=== PATIENT | female | born 1940 | race African-American/Black ===

== ENCOUNTER 2022-04-12 08:33 | Emergency (ER) | payer MEDICARE, BC ==
[~2022-04-12] VITALS: Ht 165.1 cm; Wt 87.0 kg
[~2022-04-12 08:33] MED LIST: ATOR20TA65 PO; BUDE6HFA IH; CALC1TAB PO; CHOL500051 PO; CLON0.2T PO; METF-416 PO; OLME1TAB28 PO; POTA8TAB70 PO; TOPUD PO
[2022-04-12 08:36] VITALS: BP 181/64
== END 2022-04-12 11:10 | disposition home or self-care (01) ==
LOC: ER 08:33
DX: S09.8XXA Other specified injuries of head, initial encounter (principal); J45.909 Unspecified asthma, uncomplicated; E11.9 Type 2 diabetes mellitus without complications; I10 Essential (primary) hypertension; W01.198A Fall on same level from slipping, tripping and stumbling with subsequent striking against other object, initial encounter; Y93.9 Activity, unspecified; Y92.9 Unspecified place or not applicable; Z88.0 Allergy status to penicillin
CPT/HCPCS: 99284

== ENCOUNTER 2022-11-25 14:46 | Emergency (ER) | payer BC ==
[~2022-11-25] VITALS: Ht 167.6 cm; Wt 66.0 kg
[~2022-11-25 14:46] MED LIST changes: -ATOR20TA65 PO; +PRAV80TA19 PO; -TOPUD PO
[2022-11-25 14:54] VITALS: RESP 18; TEMP 98.3; O2SAT 100
[2022-11-25 17:26] LABS: CHLORIDE 107 mEq/L (98-107); INDEX HEMOLYSI 1 (1-3); INDEX ICTERIC 1 (1-4); INDEX LIPEMIC 1 (1-3); POTASSIUM 4.1 mEq/L (3.5-5.1); SODIUM 136 mEq/L (136-145)
[2022-11-25 17:29] LABS: ALBUMIN 3.7 g/dL (3.4-5.0); CALCIUM 8.7 mg/dL (8.5-10.1); CARBON DIOXIDE 26 mEq/L (21-32); GLUCOSE 98 mg/dL (70-105); UREA NITROGEN BLOOD 12 mg/dL (7-21)
[2022-11-25 17:31] LABS: PROTHROMBIN TIME 10.6 sec (9.6-11.0)
[2022-11-25 17:35] LABS: ALANINE AMINOTRANSFERASE 18 IU/L (13-61); ASPARTATE AMINOTRANSFERASE 20 IU/L (15-37); BASOPHILS % 0.8 % (0.0-2.0); BILIRUBIN TOTAL 0.5 mg/dL (0.1-1.0); CREATININE 0.9 mg/dL (0.6-1.3); EOSINOPHILS % 3.9 % (0.0-5.0); HEMATOCRIT. 37.3 % (36.0-48.0); HEMOGLOBIN. 11.9 g/dL (12.0-16.0); LYMPHOCYTES % 39.6 % (20.0-50.0); MEAN CORPUSCULAR HEMOGLOBIN 26.2 pg (28.0-32.0); MEAN CORPUSCULAR HGB CONC 31.9 g/dL (31.0-37.0); MEAN PLATELET VOLUME 8.7 fl (7.4-10.4); MONOCYTES % 9.7 % (2.0-8.0); NT PRO B-TYPE NATRIURETIC PEP 435 pg/mL (5-125); PLATELET 235 x1000/uL (130-400); PROTEIN TOTAL 7.6 g/dL (6.0-8.3); RED BLOOD CELL COUNT 4.55 mill/uL (4.2-5.4); RED CELL DISTRIBUTION WIDTH 16.1 % (11.6-14.6); TROPONIN I HIGH SENSITIVITY 10 ng/L (<54); WHITE BLOOD COUNT 4.4 x1000/uL (4.5-11.0)
[2022-11-25 17:42] LABS: CLARITY URINE CLEAR (CLEAR); COLOR URINE YELLOW (YELLOW); GLUCOSE URINE NEGATIVE (NEGATIVE); KETONES URINE NEGATIVE (NEGATIVE); LEUKOCYTE ESTERASE URINE TRACE (NEGATIVE); NITRITE URINE NEGATIVE (NEGATIVE); OCCULT BLOOD URINE NEGATIVE (NEGATIVE); PH URINE 6.5 (4.5-8.0); PROTEIN URINE NEGATIVE (NEGATIVE); SPECIFIC GRAVITY URINE 1.004 (1.005-1.030); UROBILINOGEN URINE 0.2 E.U./dL (0.2-1.0)
[2022-11-25 18:03] LABS: BACTERIA URINE TRACE; RBC URINE NONE SEEN /hpf (0-2); SQUAMOUS EPITHELIAL CELL URINE FEW /lpf (RARE/1+); WBC URINE 0-2 /hpf (0-2)
[2022-11-25] MEDS ORDERED: HYDRALAZINE HCL 10MG TABLET PO ONE (18:15)
[2022-11-25 18:30] VITALS: BP 182/69; PULSE 68
== END 2022-11-25 18:30 | disposition home or self-care (01) ==
LOC: ER 15:04
DX: R53.1 Weakness (principal); I10 Essential (primary) hypertension; J45.909 Unspecified asthma, uncomplicated; E11.9 Type 2 diabetes mellitus without complications; Z98.890 Other specified postprocedural states; Z88.0 Allergy status to penicillin; Z88.8 Allergy status to other drugs, medicaments and biological substances; Z88.1 Allergy status to other antibiotic agents
CPT/HCPCS: 36415; 71045; 80053; 81003; 83880; 84484; 85025; 93005; 99285

== ENCOUNTER 2022-11-29 20:21 | Emergency (ER) | payer BC ==
[~2022-11-29] VITALS: Ht 165.1 cm; Wt 73.0 kg
[2022-11-29 20:29] VITALS: O2SAT 99
[2022-11-30 00:17] LABS: BASOPHILS % 0.7 % (0.0-2.0); EOSINOPHILS % 3.2 % (0.0-5.0); HEMATOCRIT. 32.2 % (36.0-48.0); HEMOGLOBIN. 10.7 g/dL (12.0-16.0); LYMPHOCYTES % 33.8 % (20.0-50.0); MEAN CORPUSCULAR HEMOGLOBIN 26.7 pg (28.0-32.0); MEAN CORPUSCULAR HGB CONC 33.2 g/dL (31.0-37.0); MEAN CORPUSCULAR VOLUME 80.4 fL (81.0-99.0); MEAN PLATELET VOLUME 8.3 fl (7.4-10.4); MONOCYTES % 11.9 % (2.0-8.0); NEUTROPHILS % 50.4 % (40.0-76.0); PLATELET 221 x1000/uL (130-400); RED CELL DISTRIBUTION WIDTH 15.5 % (11.6-14.6); WHITE BLOOD COUNT 4.5 x1000/uL (4.5-11.0)
[2022-11-30 00:25] LABS: CHLORIDE 105 mEq/L (98-107); INDEX HEMOLYSI 1 (1-3); INDEX ICTERIC 1 (1-4); INDEX LIPEMIC 1 (1-3); POTASSIUM 3.5 mEq/L (3.5-5.1); SODIUM 136 mEq/L (136-145)
[2022-11-30 00:27] LABS: CALCIUM 8.9 mg/dL (8.5-10.1)
[2022-11-30 00:35] LABS: ALANINE AMINOTRANSFERASE 20 IU/L (13-61); ALBUMIN 3.6 g/dL (3.4-5.0); ASPARTATE AMINOTRANSFERASE 21 IU/L (15-37); BILIRUBIN TOTAL 0.5 mg/dL (0.1-1.0); CARBON DIOXIDE 26 mEq/L (21-32); CREATININE 0.9 mg/dL (0.6-1.3); GLUCOSE 117 mg/dL (70-105); PROTEIN TOTAL 7.2 g/dL (6.0-8.3); TROPONIN I HIGH SENSITIVITY 45 ng/L (<54); UREA NITROGEN BLOOD 10 mg/dL (7-21)
[2022-11-30 00:50] VITALS: TEMP 97.7
[2022-11-30 03:00] VITALS: BP 164/61; PULSE 75; RESP 20
== END 2022-11-30 03:02 | disposition home or self-care (01) ==
LOC: ER 22:27
DX: I10 Essential (primary) hypertension (principal); J45.909 Unspecified asthma, uncomplicated; E11.9 Type 2 diabetes mellitus without complications; E78.00 Pure hypercholesterolemia, unspecified; Z79.899 Other long term (current) drug therapy
CPT/HCPCS: 36415; 71045; 80053; 84484; 85025; 93005; 99285

== ENCOUNTER 2023-02-01 18:31 | Emergency (ER) | payer BC ==
[~2023-02-01] VITALS: Ht 165.1 cm; Wt 77.0 kg
[2023-02-01 18:37] VITALS: BP 170/64; PULSE 70; RESP 16; TEMP 98.7; O2SAT 100
[2023-02-01 19:40] LABS: BASOPHILS % 1.1 % (0.0-2.0); EOSINOPHILS % 4.7 % (0.0-5.0); HEMATOCRIT. 32.8 % (36.0-48.0); HEMOGLOBIN. 10.6 g/dL (12.0-16.0); LYMPHOCYTES % 32.4 % (20.0-50.0); MEAN CORPUSCULAR HEMOGLOBIN 26.3 pg (28.0-32.0); MEAN CORPUSCULAR HGB CONC 32.3 g/dL (31.0-37.0); MEAN CORPUSCULAR VOLUME 81.4 fL (81.0-99.0); MEAN PLATELET VOLUME 8.6 fl (7.4-10.4); MONOCYTES % 12.5 % (2.0-8.0); NEUTROPHILS % 49.3 % (40.0-76.0); PLATELET 242 x1000/uL (130-400); RED BLOOD CELL COUNT 4.03 mill/uL (4.2-5.4); RED CELL DISTRIBUTION WIDTH 15.8 % (11.6-14.6)
[2023-02-01 19:50] LABS: CHLORIDE 102 mEq/L (98-107); INDEX HEMOLYSI 1 (1-3); INDEX ICTERIC 1 (1-4); INDEX LIPEMIC 1 (1-3); POTASSIUM 3.7 mEq/L (3.5-5.1); SODIUM 134 mEq/L (136-145)
[2023-02-01 20:00] LABS: ALANINE AMINOTRANSFERASE 24 IU/L (13-61); ALBUMIN 3.3 g/dL (3.4-5.0); ASPARTATE AMINOTRANSFERASE 23 IU/L (15-37); BILIRUBIN TOTAL 0.4 mg/dL (0.1-1.0); CALCIUM 8.5 mg/dL (8.5-10.1); CARBON DIOXIDE 25 mEq/L (21-32); GLUCOSE 110 mg/dL (70-105); NT PRO B-TYPE NATRIURETIC PEP 327 pg/mL (5-125); PROTEIN TOTAL 6.9 g/dL (6.0-8.3); TROPONIN I HIGH SENSITIVITY 13 ng/L (<54); UREA NITROGEN BLOOD 26 mg/dL (7-21)
== END 2023-02-01 20:20 | disposition left against medical advice (07) ==
LOC: ER 18:31
DX: I10 Essential (primary) hypertension (principal); J45.909 Unspecified asthma, uncomplicated; E11.9 Type 2 diabetes mellitus without complications; E78.00 Pure hypercholesterolemia, unspecified; Z79.899 Other long term (current) drug therapy; Z88.0 Allergy status to penicillin
CPT/HCPCS: 36415; 71045; 80053; 83880; 84484; 85025; 93005; 99285

== ENCOUNTER 2023-03-23 18:30 | Emergency (ER) | payer BC ==
[~2023-03-23] VITALS: Ht 172.7 cm; Wt 75.0 kg
[2023-03-23 18:34] VITALS: BP 202/76; PULSE 92; RESP 14; O2SAT 99
[2023-03-23 19:47] LABS: BASOPHILS % 0.4 % (0.0-2.0); EOSINOPHILS % 0.9 % (0.0-5.0); HEMATOCRIT. 38.5 % (36.0-48.0); LYMPHOCYTES % 8.5 % (20.0-50.0); MEAN CORPUSCULAR HEMOGLOBIN 26.2 pg (28.0-32.0); MEAN CORPUSCULAR HGB CONC 31.1 g/dL (31.0-37.0); MEAN CORPUSCULAR VOLUME 84.2 fL (81.0-99.0); MEAN PLATELET VOLUME 8.8 fl (7.4-10.4); MONOCYTES % 7.6 % (2.0-8.0); NEUTROPHILS % 82.6 % (40.0-76.0); PLATELET 284 x1000/uL (130-400); RED BLOOD CELL COUNT 4.57 mill/uL (4.2-5.4); RED CELL DISTRIBUTION WIDTH 15.2 % (11.6-14.6); WHITE BLOOD COUNT 8.8 x1000/uL (4.5-11.0)
[2023-03-23 19:57] LABS: ALANINE AMINOTRANSFERASE 72 IU/L (10-49); ALBUMIN 4.4 g/dL (3.2-4.8); ASPARTATE AMINOTRANSFERASE 31 IU/L (<34); BILIRUBIN TOTAL 0.7 mg/dL (0.1-1.0); CALCIUM 9.8 mg/dL (8.7-10.4); CARBON DIOXIDE 28 mEq/L (21-32); CHLORIDE 103 mEq/L (98-107); CREATININE 1.2 mg/dL (0.6-1.0); GLUCOSE 135 mg/dL (70-105); POTASSIUM 3.4 mEq/L (3.5-5.1); PROTEIN TOTAL 7.9 g/dL (6.0-8.3); SODIUM 138 mEq/L (136-145); TROPONIN I HIGH SENSITIVITY 10 ng/L (3.0-34); UREA NITROGEN BLOOD 29 mg/dL (9-23)
== END 2023-03-23 22:35 | disposition left against medical advice (07) ==
LOC: ER 18:30
DX: R10.30 Lower abdominal pain, unspecified (principal); R05.9 Cough, unspecified; R09.81 Nasal congestion; J45.909 Unspecified asthma, uncomplicated; E11.9 Type 2 diabetes mellitus without complications; E78.00 Pure hypercholesterolemia, unspecified; I10 Essential (primary) hypertension; Z79.899 Other long term (current) drug therapy
CPT/HCPCS: 36415; 80053; 84484; 85025; 93005; 99284

== ENCOUNTER 2024-04-24 13:49 | Inpatient (IN) | payer BC, MEDICARE ==
[~2024-04-24] VITALS: Ht 152.4 cm; Wt 72.6 kg
[~2024-04-24 13:49] MED LIST changes: +ALBU18HF2 IH; +ASPI-1160 PO; +ATEN-42 PO; +LIP40 PO; +LOSA25TA26 PO; +METH4TAB95 MT; -OLME1TAB28 PO; -PRAV80TA19 PO
[2024-04-24 14:00] VITALS: RESP 25
[2024-04-24] MEDS: IPRATROPIUM BROMIDE (0.02%) 0.5MG/2.5ML NEB HHN STA (14:00)
[2024-04-24] MEDS: ALBUTEROL (0.083%) 2.5MG/3ML NEB HHN STA (14:00)
[2024-04-24] MEDS: METHYLPREDNISOLONE SOD SUCC 125MG/2ML (ACT-O-VIAL) IV STA (14:29)
[2024-04-24] MEDS: MAGNESIUM 2 G PREMIX 50 ML IV STA (14:30)
[2024-04-24] MEDS: SODIUM CHLORIDE 0.9% (SEPSIS BOLUS) IV ONE (14:30)
[2024-04-24 14:57] LABS: BASOPHILS % 0.8 % (0.0-2.0); EOSINOPHILS % 6.5 % (0.0-5.0); HEMATOCRIT. 36.7 % (36.0-48.0); HEMOGLOBIN. 11.4 g/dL (12.0-16.0); LYMPHOCYTES % 10.8 % (20.0-50.0); MEAN CORPUSCULAR HEMOGLOBIN 26.1 pg (28.0-32.0); MEAN CORPUSCULAR HGB CONC 31.1 g/dL (31.0-37.0); MEAN CORPUSCULAR VOLUME 83.7 fL (81.0-99.0); MONOCYTES % 2.3 % (2.0-8.0); NEUTROPHILS % 79.6 % (40.0-76.0); PLATELET 242 x1000/uL (130-400); RED BLOOD CELL COUNT 4.38 mill/uL (4.2-5.4); RED CELL DISTRIBUTION WIDTH 16.5 % (11.6-14.6); WHITE BLOOD COUNT 7.9 x1000/uL (4.5-11.0)
[2024-04-24 15:09] LABS: PROTHROMBIN TIME 10.7 sec (9.6-11.0)
[2024-04-24 15:13] LABS: CHLORIDE 108 mEq/L (98-107); POTASSIUM 4.9 mEq/L (3.5-5.1); SODIUM 138 mEq/L (136-145)
[2024-04-24 15:14] LABS: CALCIUM 9.4 mg/dL (8.7-10.4); CARBON DIOXIDE 23 mEq/L (21-32)
[2024-04-24 15:19] LABS: CREATININE 1.2 mg/dL (0.6-1.0); GLUCOSE 212 mg/dL (70-105); UREA NITROGEN BLOOD 20 mg/dL (9-23)
[2024-04-24] MEDS: DOXYCYCLINE 100MG/100ML 100 ML IV ONE (15:19)
[2024-04-24 15:21] LABS: ALANINE AMINOTRANSFERASE 72 IU/L (10-49); ALBUMIN 4.4 g/dL (3.2-4.8); ASPARTATE AMINOTRANSFERASE 103 IU/L (<34); BILIRUBIN DIRECT 0.2 mg/dL (<=3.0); BILIRUBIN TOTAL 0.7 mg/dL (0.1-1.0); PROTEIN TOTAL 7.4 g/dL (6.0-8.3); TROPONIN I HIGH SENSITIVITY 9 ng/L (3.0-34)
[2024-04-24 19:39] LABS: CLARITY URINE CLEAR (CLEAR); COLOR URINE YELLOW (YELLOW); GLUCOSE URINE NEGATIVE (NEGATIVE); KETONES URINE NEGATIVE (NEGATIVE); LEUKOCYTE ESTERASE URINE NEGATIVE (NEGATIVE); NITRITE URINE NEGATIVE (NEGATIVE); OCCULT BLOOD URINE NEGATIVE (NEGATIVE); PROTEIN URINE 1+ (NEGATIVE); SPECIFIC GRAVITY URINE 1.014 (1.005-1.030); UROBILINOGEN URINE 0.2 E.U./dL (0.2-1.0)
[2024-04-24 20:43] LABS: BACTERIA URINE NONE SEEN; RBC URINE NONE SEEN /hpf (0-2); SQUAMOUS EPITHELIAL CELL URINE NONE SEEN /lpf (RARE/1+); WBC URINE NONE SEEN /hpf (0-2); YEAST URINE NONE SEEN
[2024-04-24 21:07] VITALS: RESP 23
[2024-04-25 04:37] VITALS: RESP 24
[2024-04-25 13:35] VITALS: BP 180/68; PULSE 95; RESP 20; TEMP 36.114; O2SAT 94
[2024-04-25] MEDS ORDERED: PRED10TA PO (14:39)
[2024-04-25] MEDS ORDERED: D-ME473S50 PO (14:42)
[2024-04-25] MEDS ORDERED: MONT-39 PO (14:42)
[2024-04-25] MEDS ORDERED: TRIAMTERENE-HCTZ (14:42)
[2024-04-25] MEDS ORDERED: OLME20TA68 PO ×2 (14:42→14:57)
[2024-04-25] MEDS ORDERED: DEXTROSE 50% WATER 50ML SYRINGE IV PRN (14:45)
[2024-04-25] MEDS ORDERED: AMLODIPINE 10MG TABLET PO PRN (14:45)
[2024-04-25] MEDS ORDERED: ACETAMINOPHEN 325MG TABLET PO PRN (14:45)
[2024-04-25] MEDS ORDERED: ONDANSETRON HCL 4MG/2ML INJ IV PRN (14:45)
[2024-04-25] MEDS ORDERED: HYDR50TA40 MT (14:55)
[2024-04-25] MEDS: LORATADINE 10MG TABLET PO SCH (15:11)
[2024-04-25] MEDS: CLONIDINE 0.1MG TABLET PO PRN (15:12)
[2024-04-25] MEDS: METHYLPREDNISOLONE SOD SUCC 40MG/ML (ACT-O-VIAL) IV SCH (15:13)
[2024-04-25] MEDS: HYDRALAZINE HCL 50MG TABLET PO SCH (15:58)
[2024-04-25 16:00] VITALS: BP 165/65; PULSE 89; RESP 20; TEMP 36.50292; O2SAT 96
[2024-04-25 16:46] VITALS: BP 165/65; PULSE 89; RESP 20; TEMP 36.5292
[2024-04-25] MEDS: BLOOD SUGAR DIAGNOSTIC STRIP TEST SCH (17:10)
[2024-04-25] MEDS: INSULIN LISPRO 100 UNITS/ML SUBCUT SCH (17:40)
[2024-04-25] MEDS ORDERED: IPRATROPIUM/ALBUTEROL 0.5-3(2.5)MG/3ML NEB HHN SCH (18:00)
[2024-04-25] MEDS: MONTELUKAST SODIUM 10MG TABLET PO SCH (18:03)
[2024-04-25 20:00] VITALS: BP 163/68; PULSE 95; RESP 18; TEMP 37.00296; O2SAT 100
[2024-04-26] VITALS (7 sets, daily range): BP systolic 152–171; BP diastolic 59–81; PULSE 88–94; RESP 18–19; TEMP 36.61404–37.05852; O2SAT 94–98
[2024-04-26] MEDS: IPRATROPIUM/ALBUTEROL 0.5-3(2.5)MG/3ML NEB HHN SCH (03:20)
[2024-04-27] VITALS: BP 165/77; PULSE 80; RESP 20; TEMP 36.89184; O2SAT 97
[2024-04-27 04:00] VITALS: BP 151/70; PULSE 82; RESP 18; TEMP 36.55848; O2SAT 99
[2024-04-27 08:00] VITALS: BP_SYST 166; BP_SYST 194; BP_DIAS 67; BP_DIAS 79; PULSE 74; PULSE 81; TEMP 36.78072
[2024-04-27] MEDS: METHYLPREDNISOLONE SOD SUCC 40MG/ML (ACT-O-VIAL) IV SCH (08:30)
[2024-04-27 12:00] VITALS: BP 202/88; PULSE 90; RESP 18; TEMP 36.83628; O2SAT 95
[2024-04-27] MEDS: HYDRALAZINE 20MG/ML VIAL IV NR (12:23)
[2024-04-27 14:49] VITALS: BP 149/67; PULSE 90; TEMP 98.1; O2SAT 96
[2024-04-27 14:50] VITALS: BP 149/67; PULSE 90; RESP 18; TEMP 36.72516; O2SAT 96
[2024-04-27] MEDS ORDERED: P20 MT (17:12)
== END 2024-04-27 16:10 | disposition home or self-care (01) | DRG 189 ==
LOC: ER 13:49 → 8WST 15:48 → EDBEDREQ 15:51 → EDBEDREQTM 15:51 → EDBEDREQSVC 04-25 11:51 → 8WST 04-25 14:31
PROVIDERS: ADMIT Internal Medicine; ATTEND Internal Medicine
PROC: 5A09357 Assistance with Respiratory Ventilation, Less than 24 Consecutive Hours, Continuous Positive Airway Pressure (ICD-10-PCS; principal; 2024-04-24)
PROC: 5A09357 Assistance with Respiratory Ventilation, Less than 24 Consecutive Hours, Continuous Positive Airway Pressure (ICD-10-PCS; 2024-04-25)
DX: J96.01 Acute respiratory failure with hypoxia (principal); J44.1 Chronic obstructive pulmonary disease with (acute) exacerbation; I10 Essential (primary) hypertension; D72.10 Eosinophilia, unspecified; R80.9 Proteinuria, unspecified; E11.65 Type 2 diabetes mellitus with hyperglycemia; I27.20 Pulmonary hypertension, unspecified; Z88.0 Allergy status to penicillin; Z99.81 Dependence on supplemental oxygen; Z88.1 Allergy status to other antibiotic agents; Z88.8 Allergy status to other drugs, medicaments and biological substances
CPT/HCPCS: 36415; 71045; 80048; 80076; 81003; 82962; 83036; 83605; 83880; 84145; 84484; 85025; 93005; 94640; 94660; 99291; J0360; J1815; J2919; J2920; J3475; J3490; J7030

== ENCOUNTER 2024-08-18 19:58 | Inpatient (IN) | payer BC, MEDICARE ==
[~2024-08-18] VITALS: Ht 165.1 cm; Wt 74.4 kg
[~2024-08-18 19:58] MED LIST changes: +D-ME473S50 PO; +HYDR50TA40 MT; +MONT-39 PO; +OLME20TA68 PO; +P20 MT; +PRED10TA PO; +TRIAMTERENE-HCTZ
[2024-08-18 20:05] VITALS: RESP 32
[2024-08-18] MEDS: FUROSEMIDE 40MG/4ML VIAL IVP ONE (20:37)
[2024-08-18] MEDS: NITROGLYCERIN 0.1MG/HR PATCH TOP ONE (20:38)
[2024-08-18] MEDS: NITROGLYCERIN 50MG PREMIX 250 ML IV ONE (20:39)
[2024-08-18 20:49] LABS: CHLORIDE 105 mEq/L (98-107); POTASSIUM 4.2 mEq/L (3.5-5.1); SODIUM 142 mEq/L (136-145)
[2024-08-18 20:50] LABS: CALCIUM 9.4 mg/dL (8.7-10.4); CARBON DIOXIDE 25 mEq/L (21-32)
[2024-08-18 20:55] LABS: CREATININE 1.4 mg/dL (0.6-1.0); GLUCOSE 223 mg/dL (70-105); UREA NITROGEN BLOOD 25 mg/dL (9-23)
[2024-08-18 20:56] LABS: TROPONIN I HIGH SENSITIVITY 13 ng/L (3.0-34)
[2024-08-18 20:57] LABS: ALANINE AMINOTRANSFERASE 39 IU/L (10-49); ALBUMIN 4.3 g/dL (3.2-4.8); ASPARTATE AMINOTRANSFERASE 45 IU/L (<34); BASOPHILS % 1.4 % (0.0-2.0); BILIRUBIN DIRECT 0.1 mg/dL (<=3.0); BILIRUBIN TOTAL 0.5 mg/dL (0.1-1.0); HEMATOCRIT. 36.2 % (36.0-48.0); HEMOGLOBIN. 11.4 g/dL (12.0-16.0); LYMPHOCYTES % 42.5 % (20.0-50.0); MEAN CORPUSCULAR HEMOGLOBIN 27.2 pg (28.0-32.0); MEAN CORPUSCULAR HGB CONC 31.6 g/dL (31.0-37.0); MEAN CORPUSCULAR VOLUME 86.1 fL (81.0-99.0); MEAN PLATELET VOLUME 8.8 fl (7.4-10.4); NEUTROPHILS % 34.1 % (40.0-76.0); PLATELET 246 x1000/uL (130-400); RED CELL DISTRIBUTION WIDTH 19.7 % (11.6-14.6); WHITE BLOOD COUNT 6.8 x1000/uL (4.5-11.0)
[2024-08-19] VITALS (15 sets, daily range): BP systolic 102–172; BP diastolic 28–105; PULSE 81–101; RESP 14–30; TEMP 35.8–36.7; O2SAT 93–100
[2024-08-19 01:00] LABS: BG BASE EXCESS -1.7 mmol/L (-2.0-3.0); BG CARBOXYHEMOGLOBIN 0.8 % (0.5-1.5); BG DEOXYHEMOGLOBIN 0.1 % (0.0-5.0); BG FRACTION INSPIRED OXYGEN 100; BG HCO3 ACT 25.4 mmol/L (21.0-28.0); BG METHEMOGLOBIN 0.1 % (0.5-1.5); BG OXYGEN SATURATION 99.9 % (94.0-98.0); BG PCO2 52.5 mmHg (32.0-45.0); BG PH 7.302 (7.350-7.450); BG PO2 344.1 mmHg (83.0-108.0); BG SAMPLE SITE LEFT FEMORAL; BG TOTAL HEMOGLOBIN 13.5 g/dL (12.0-16.0); BG VENT MODE MASK - BIPAP
[2024-08-19] MEDS ORDERED: GUAIFENESIN 200MG/10ML SUGAR FREE UDC PO PRN (01:00)
[2024-08-19] MEDS ORDERED: MAGNESIUM/ALUMINUM HYDROXIDE/SIMETHICONE 30ML UDC PO PRN (01:00)
[2024-08-19] MEDS ORDERED: DOCUSATE SODIUM 100MG CAPSULE PO PRN (01:00)
[2024-08-19] MEDS ORDERED: IPRATROPIUM/ALBUTEROL 0.5-3(2.5)MG/3ML NEB HHN PRN (01:00)
[2024-08-19] MEDS ORDERED: ONDANSETRON HCL 4MG/2ML INJ IV PRN (01:00)
[2024-08-19] MEDS ORDERED: DEXTROSE 50% WATER 50ML SYRINGE IV PRN (01:00)
[2024-08-19] MEDS: METHYLPREDNISOLONE SOD SUCC 125MG/2ML (ACT-O-VIAL) IV NR (01:31)
[2024-08-19] MEDS: MAGNESIUM 1 G PREMIX 100 ML IV NR (01:33)
[2024-08-19] MEDS: CLONIDINE 0.1MG TABLET PO PRN (03:21)
[2024-08-19] MEDS: ACETAMINOPHEN 325MG TABLET PO PRN (03:30)
[2024-08-19] MEDS: HYDRALAZINE 20MG/ML VIAL IV NR (04:30)
[2024-08-19] MEDS ORDERED: HYDRALAZINE 20MG/ML VIAL IV ONE (04:30)
[2024-08-19] MEDS: HYDRALAZINE HCL 50MG TABLET PO SCH (05:21)
[2024-08-19 06:03] LABS: HEMATOCRIT 33.3 % (36.0-48.0); HEMOGLOBIN 10.8 g/dL (12.0-16.0); MEAN CORPUSCULAR HGB CONC 32.5 g/dL (31.0-37.0); MEAN CORPUSCULAR VOLUME 86.1 fL (81.0-99.0); PLATELET 230 x1000/uL (130-400); RED BLOOD CELL COUNT 3.86 mill/uL (4.2-5.4); RED CELL DISTRIBUTION WIDTH 19.3 % (11.6-14.6); WHITE BLOOD COUNT 4.9 x1000/uL (4.5-11.0)
[2024-08-19 06:42] LABS: CALCIUM 9.5 mg/dL (8.7-10.4); CARBON DIOXIDE 28 mEq/L (21-32); CHLORIDE 105 mEq/L (98-107); POTASSIUM 4.5 mEq/L (3.5-5.1); SODIUM 143 mEq/L (136-145)
[2024-08-19 06:47] LABS: CREATININE 1.3 mg/dL (0.6-1.0)
[2024-08-19 06:48] LABS: GLUCOSE 147 mg/dL (70-105); UREA NITROGEN BLOOD 27 mg/dL (9-23)
[2024-08-19 06:50] LABS: PHOSPHORUS 5.4 mg/dL (2.5-4.9)
[2024-08-19] MEDS: BLOOD SUGAR DIAGNOSTIC STRIP TEST SCH (07:30)
[2024-08-19] MEDS: INSULIN LISPRO 100 UNITS/ML SUBCUT SCH (08:00)
[2024-08-19] MEDS ORDERED: CLONIDINE 0.1MG TABLET PO SCH (09:00)
[2024-08-19] MEDS: IPRATROPIUM/ALBUTEROL 0.5-3(2.5)MG/3ML NEB HHN SCH (09:13)
[2024-08-19] MEDS: ENOXAPARIN 30MG/0.3ML SYR SUBCUT SCH (10:03)
[2024-08-19] MEDS: FAMOTIDINE 20MG/2ML VIAL IV SCH (10:04)
[2024-08-19] MEDS: ASPIRIN 81MG EC TABLET PO SCH (10:04)
[2024-08-19] MEDS: METHYLPREDNISOLONE SOD SUCC 40MG/ML (ACT-O-VIAL) IV SCH (10:04)
[2024-08-19] MEDS: CLONIDINE 0.2MG TABLET PO SCH (10:08)
[2024-08-19] MEDS: FUROSEMIDE 20MG/2ML VIAL IVP SCH (13:27)
[2024-08-19 18:01] LABS: *AMPHETAMINES SCREEN URINE NEGATIVE (NEGATIVE); *BARBITURATES SCREEN URINE NEGATIVE (NEGATIVE); *BENZODIAZEPINES SCREEN URINE NEGATIVE (NEGATIVE); *COCAINE SCREEN URINE NEGATIVE (NEGATIVE); CANNABINOID URINE SCREEN NEGATIVE (NEGATIVE); ECSTASY MDMA SCREEN URINE NEGATIVE (NEGATIVE); METHADONE URINE SCREEN NEGATIVE (NEGATIVE); OPIATES URINE SCREEN NEGATIVE (NEGATIVE); PHENCYCLIDINE URINE SCREEN NEGATIVE (NEGATIVE)
[2024-08-19] MEDS: MONTELUKAST SODIUM 10MG TABLET PO SCH (18:09)
[2024-08-20] VITALS (13 sets, daily range): BP systolic 105–141; BP diastolic 48–95; PULSE 78–93; RESP 13–21; TEMP 36.4–37; O2SAT 88–100
[2024-08-20 06:09] LABS: BASOPHILS % 0.1 % (0.0-2.0); HEMATOCRIT. 29.4 % (36.0-48.0); HEMOGLOBIN. 9.5 g/dL (12.0-16.0); LYMPHOCYTES % 10.2 % (20.0-50.0); MEAN CORPUSCULAR HEMOGLOBIN 27.2 pg (28.0-32.0); MEAN CORPUSCULAR HGB CONC 32.4 g/dL (31.0-37.0); MEAN CORPUSCULAR VOLUME 83.9 fL (81.0-99.0); MEAN PLATELET VOLUME 8.8 fl (7.4-10.4); MONOCYTES % 12.7 % (2.0-8.0); PLATELET 188 x1000/uL (130-400); RED BLOOD CELL COUNT 3.51 mill/uL (4.2-5.4); RED CELL DISTRIBUTION WIDTH 18.7 % (11.6-14.6); WHITE BLOOD COUNT 5.2 x1000/uL (4.5-11.0)
[2024-08-20 06:37] LABS: CREATININE 1.3 mg/dL (0.6-1.0)
[2024-08-20 06:41] LABS: CALCIUM 8.9 mg/dL (8.7-10.4)
[2024-08-20 06:43] LABS: T4 FREE 1.09 ng/dL (0.89-1.76); THYROID STIMULATING HORMONE 0.47 uIU/mL (0.55-4.78)
[2024-08-20] MEDS: FUROSEMIDE 20MG/2ML VIAL IVP SCH (09:11)
[2024-08-20 10:11] LABS: BG BASE EXCESS -2.8 mmol/L (-2.0-3.0); BG DEOXYHEMOGLOBIN 2.7 % (0.0-5.0); BG FRACTION INSPIRED OXYGEN 21; BG HCO3 ACT 21.7 mmol/L (21.0-28.0); BG OXYGEN SATURATION 97.3 % (94.0-98.0); BG OXYHEMOGLOBIN 96.3 % (94.0-98.0); BG PCO2 36.4 mmHg (32.0-45.0); BG PH 7.393 (7.350-7.450); BG PO2 89.6 mmHg (83.0-108.0); BG SAMPLE SITE LEFT RADIAL; BG TOTAL HEMOGLOBIN 10.8 g/dL (12.0-16.0); BG VENT MODE ROOM AIR
[2024-08-20] MEDS: HYDRALAZINE HCL 25MG TABLET PO SCH (14:34)
[2024-08-20] MEDS: CLONIDINE 0.1MG TABLET PO SCH (20:41)
[2024-08-20] MEDS ORDERED: FURO20TA4 PO (21:49)
[2024-08-20] MEDS: IPRATROPIUM/ALBUTEROL 0.5-3(2.5)MG/3ML NEB HHN NR (21:50)
[2024-08-21] VITALS (10 sets, daily range): BP systolic 120–167; BP diastolic 52–121; PULSE 71–101; RESP 17–24; TEMP 36.3–36.7; O2SAT 96–100
[2024-08-21 06:58] LABS: BASOPHILS % 0.1 % (0.0-2.0); HEMATOCRIT. 31.2 % (36.0-48.0); HEMOGLOBIN. 10.1 g/dL (12.0-16.0); LYMPHOCYTES % 11.3 % (20.0-50.0); MEAN CORPUSCULAR HGB CONC 32.3 g/dL (31.0-37.0); MEAN CORPUSCULAR VOLUME 83.7 fL (81.0-99.0); MEAN PLATELET VOLUME 9.1 fl (7.4-10.4); MONOCYTES % 10.3 % (2.0-8.0); NEUTROPHILS % 78.3 % (40.0-76.0); PLATELET 212 x1000/uL (130-400); RED BLOOD CELL COUNT 3.72 mill/uL (4.2-5.4); RED CELL DISTRIBUTION WIDTH 19.1 % (11.6-14.6); WHITE BLOOD COUNT 6.3 x1000/uL (4.5-11.0)
[2024-08-21 07:06] LABS: POTASSIUM 4.2 mEq/L (3.5-5.1)
[2024-08-21 07:08] LABS: CALCIUM 9.3 mg/dL (8.7-10.4)
[2024-08-21 07:12] LABS: CREATININE 1.3 mg/dL (0.6-1.0)
[2024-08-21] MEDS: FUROSEMIDE 40MG/4ML VIAL IVP SCH (09:21)
== END 2024-08-21 19:10 | disposition home health service (06) | DRG 189 ==
LOC: ER 19:58 → EDBEDREQSVC 21:17 → 5EST 08-19 00:01 → EDBEDREQ 08-19 00:04 → EDBEDREQSVC 08-19 00:44 → ENRESERV 08-19 01:12
PROVIDERS: ADMIT Hospitalist; ATTEND Hospitalist
PROC: 5A09357 Assistance with Respiratory Ventilation, Less than 24 Consecutive Hours, Continuous Positive Airway Pressure (ICD-10-PCS; principal; 2024-08-18)
PROC: 5A09357 Assistance with Respiratory Ventilation, Less than 24 Consecutive Hours, Continuous Positive Airway Pressure (ICD-10-PCS; 2024-08-19)
DX: J96.21 Acute and chronic respiratory failure with hypoxia (principal); I13.0 Hypertensive heart and chronic kidney disease with heart failure and stage 1 through stage 4 chronic kidney disease, or unspecified chronic kidney disease; J45.901 Unspecified asthma with (acute) exacerbation; J44.1 Chronic obstructive pulmonary disease with (acute) exacerbation; I16.1 Hypertensive emergency; E87.29 Other acidosis; N17.9 Acute kidney failure, unspecified; I42.9 Cardiomyopathy, unspecified; I50.810 Right heart failure, unspecified; J96.22 Acute and chronic respiratory failure with hypercapnia; D64.9 Anemia, unspecified; N18.32 Chronic kidney disease, stage 3b; E11.22 Type 2 diabetes mellitus with diabetic chronic kidney disease; E83.39 Other disorders of phosphorus metabolism; E11.65 Type 2 diabetes mellitus with hyperglycemia; I08.1 Rheumatic disorders of both mitral and tricuspid valves; I50.9 Heart failure, unspecified; E78.00 Pure hypercholesterolemia, unspecified; I25.10 Atherosclerotic heart disease of native coronary artery without angina pectoris; Z79.84 Long term (current) use of oral hypoglycemic drugs; Z88.0 Allergy status to penicillin; Z88.8 Allergy status to other drugs, medicaments and biological substances; Z79.82 Long term (current) use of aspirin; Z79.899 Other long term (current) drug therapy
CPT/HCPCS: 36415; 36600; 71045; 80048; 80076; 80305; 82375; 82805; 82962; 83735; 83880; 83930; 84100; 84439; 84443; 84484; 85025; 85027; 85379; 93005; 93306; 93970; 94070; 94640; 94660; 94664; 94760; 97162; 97166; 98960; 99291; J0360; J1650; J1815; J1940; J2919; J3475; J3490